=== PATIENT | male | born 2000 | race Caucasian/White ===

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

== ENCOUNTER 2023-02-10 20:32 | Emergency (ER) | payer OTHER, MEDICAID ==
[~2023-02-10] VITALS: Ht 175.3 cm; Wt 74.0 kg
[2023-02-10 21:13] VITALS: BP 132/63; PULSE 80; RESP 18; TEMP 98.1; O2SAT 98
== END 2023-02-10 22:01 | disposition left against medical advice (07) ==
LOC: ER 20:32
DX: R51.9 Headache, unspecified (principal); Z53.21 Procedure and treatment not carried out due to patient leaving prior to being seen by health care provider
CPT/HCPCS: 99281

== ENCOUNTER 2024-03-06 18:31 | Emergency (ER) | payer MEDICAID, OTHER ==
[~2024-03-06] VITALS: Ht 177.8 cm; Wt 68.0 kg
[2024-03-06 18:33] VITALS: O2SAT 99
[2024-03-06 20:03] LABS: CHLORIDE 109 mEq/L (98-107); POTASSIUM 3.9 mEq/L (3.5-5.1); SODIUM 143 mEq/L (136-145)
[2024-03-06 20:04] LABS: CALCIUM 9.7 mg/dL (8.7-10.4); CARBON DIOXIDE 26 mEq/L (21-32)
[2024-03-06 20:09] LABS: CREATININE 1.3 mg/dL (0.6-1.3); GLUCOSE 101 mg/dL (70-105); UREA NITROGEN BLOOD 12 mg/dL (9-23)
[2024-03-06 20:11] LABS: TROPONIN I HIGH SENSITIVITY 4 ng/L (3.0-53)
[2024-03-06 20:13] LABS: BASOPHILS % 0.7 % (0.0-2.0); EOSINOPHILS % 8.3 % (0.0-5.0); HEMATOCRIT. 48.1 % (42.0-52.0); HEMOGLOBIN. 16.1 g/dL (14.0-18.0); LYMPHOCYTES % 17.2 % (20.0-50.0); MEAN CORPUSCULAR HEMOGLOBIN 29.1 pg (28.0-32.0); MEAN CORPUSCULAR HGB CONC 33.6 g/dL (31.0-37.0); MEAN CORPUSCULAR VOLUME 86.6 fL (80.0-94.0); MONOCYTES % 7.3 % (2.0-8.0); NEUTROPHILS % 66.5 % (40.0-76.0); RED BLOOD CELL COUNT 5.56 mill/uL (4.7-6.1); RED CELL DISTRIBUTION WIDTH 12.7 % (11.6-14.6); WHITE BLOOD COUNT 9.9 x1000/uL (4.5-11.0)
[2024-03-06 20:14] LABS: DIFFERENTIAL COMMENT 1
[2024-03-06 20:41] LABS: MEAN PLATELET VOLUME 10.3 fl (7.4-10.4); PLATELET 176 x1000/uL (130-400)
[2024-03-06 23:12] VITALS: BP 142/83; PULSE 66; RESP 18; TEMP 36.78072; O2SAT 100
== END 2024-03-06 23:13 | disposition home or self-care (01) ==
LOC: ER 18:31
DX: F12.10 Cannabis abuse, uncomplicated (principal); J45.909 Unspecified asthma, uncomplicated
CPT/HCPCS: 36415; 71045; 80048; 84484; 85025; 93005; 99285